=== PATIENT | male | born 1960 | race African-American/Black ===

== ENCOUNTER 2017-12-08 11:27 | Inpatient (IN) | payer OTHER ==
[2017-12-08] MEDS ORDERED: PNEUMOC 13-VAL CONJ-DIP CRM/PF 0.5 ML DISP.SYRIN IM ONE (11:47)
[2017-12-08] MEDS ORDERED: guaiFENesin/D-METHORPHAN HB 10 ML UNIT-DOSE CUPS PO PRN (12:59)
[2017-12-08] MEDS ORDERED: MAGNESIUM HYDROX 2400MG/30ML ORAL SUSPENSION 30 ML CUP PO PRN (12:59)
[2017-12-08] MEDS ORDERED: LOPERAMIDE HCL 2 MG CAPSULE PO PRN (12:59)
[2017-12-08] MEDS ORDERED: MENTHOL/PHENOL 1 EACH UD MM PRN (12:59)
[2017-12-08] MEDS ORDERED: MAGNESIUM CITRATE 300 ML BOTTLE PO PRN (12:59)
[2017-12-08] MEDS ORDERED: MAG HYDROX/AL HYDROX/SIMETH 30 ML UNIT-DOSE CUP PO PRN (12:59)
[2017-12-08] MEDS ORDERED: P-EPHED 60MG/TRIPROLIDI 2.5MG TABLET PO PRN (12:59)
[2017-12-08] MEDS ORDERED: NICOTINE POLACRILEX 2 MG GUM BUC PRN (12:59)
[2017-12-08] MEDS ORDERED: hydrOXYzine PAMOATE 50 MG CAPSULE (FP) PO PRN (12:59)
--- NOTE | 2017-12-08 14:04 | HP ---
[facility] Rehab Assess/Revision - Admission History Ad[facility] Rehab [facility]: [facility] Date of Admission to Rehab: 12/08/17 - Findings Detox History & Physical reviewed: Yes Concur with findings: Yes Comments/Additional Findings: ADMITTED TO REHAB TODAY FOR AFTERCARE IN STABLE CONDITION. Inpatient Rehab Admission - Initial Determination Are CD services needed?: Yes Free of communicable disease: Yes Not in need of hospitalization: Yes - Rehab Admission Criteria Patient is meeting Inpatient Rehab admission criteria:: Yes
[2017-12-08] MEDS: NICOTINE 14 MG/24 HOURS TOPICAL PATCH TD SCH (14:49)
[2017-12-08] MEDS: ACETAMINOPHEN 325 MG TABLET (FP) PO PRN (21:18)
[2017-12-08] MEDS: THIAMINE HCL 100 MG TABLET (FP) PO SCH (21:18)
[2017-12-08] MEDS: MELATONIN 5 MG TABLETS PO PRN (21:18)
--- NOTE | 2017-12-09 06:22 | HP ---
Psychiatrist Admission - Data Date of interview: 12/09/17 Admission source: [address] [place] [address] Identifying data: This is the first [facility] admission for this 57 years old single Black male, father of 2 children, unemployed on SSI,domiciled Medical History: Significant for hypertension, lower back pain/herniated disc(L5 -L6), sleep apnea, glaucoma and a history of orthosurgery of both knees in 2007 and nasal surgery. Smokes 5 cigarettes daily Psychiatric History: Reports being diagnosed with Bipolar Disorder at age 16 and started on psychotropic medications. Claims that he has been seeing psychiatrist since. His last psychiatric outpatient treatment was during his 2 years of incarceration prior to his released in September 2017. While there, he was prescribed Depakote 500 mg po BID and another medication. He attended [facility] before his incarceration. Claims he was not given scripts for his medications upon his release and was off them till 2 weeks ago when he was kept and observed at [facility] ED for anxiety. He was discharged on Depakote. He saw Dr Figueroa on 12/05/17 while in detox and was prescribed Seroquel 50 mg po HS( on his request) and Depakote 500 mg po BID(Valproic Acid level on 02/04/18: 5,601 ). Reports one previous psychiatric hospitalization (2014) at [facility]. Denies history of suicidal attempt.Mr Benton states that he is scheduled to see a new psychiatrist, Dr Singh, at a clinic on [facility] in the [place] in December 2017. At present, reports doing well but sleeping poorly Physical/Sexual Abuse/Trauma History: Denies history of emotional, physical or sexual abuse as well as DV relationship. No service Additional Comment: Reports history of multiple previous arrests including 5-7 felony convictions. Reports being on parole till September 2019 Vital Signs: Vital Signs - 24 hr 12/09/17 12/09/17 00:30 03:30 Respiratory 20 20 Rate Allergies/Adverse Reactions: Allergies Allergy/AdvReac Type Severity Reaction Status Date / Time Fish Containing Products Allergy Intermediate Itching Verified 12/08/17 11:33 Date of last physical exam: 12/04/17 Concur with the findings of this exam: Yes - Substance Abuse/Tx History Hx Alcohol Use: Yes Hx Substance Use: Yes Substance Use Type: Alcohol (Started drinking alcohol at age 18, consumes a 6pk of beer 3-6 times weekly. Last drank on 12/04/17), Cocaine (Started using cocaine at age 13, consumes $200 worth daily. Last used on 12/03/17) Mental Status Exam - Mental Status Exam Alert and Oriented to: Time, Place, Person Cognitive Function: Fair Patient Appearance: Well Groomed Mood: Hopeful, Euthymic Affect: Appropriate Patient Behavior: Cooperative Speech Pattern: Clear Voice Loudness: Normal Thought Process: Intact Thought Disorder: Not Present Hallucinations: Denies Suicidal Ideation: Denies Homicidal Ideation: Denies Insight/Judgement: Fair Sleep: Poorly Appetite: Good Muscle strength/Tone: Normal Gait/Station: Normal Psychiatric Findings - Problem List ([place] 1, 2,3) (1) Alcohol dependence Current Visit: Yes Status: Acute (2) Cocaine dependence Current Visit: Yes Status: Acute (3) Nicotine dependence Current Visit: Yes Status: Acute Qualifiers: Nicotine product type: cigarettes Substance use status: in withdrawal Qualified Code(s): F17.213 - Nicotine dependence, cigarettes, with withdrawal (4) Bipolar disorder Current Visit: No Status: Chronic Qualifiers: Active/Remission status: remission status unspecified Qualified Code(s): F31.9 - Bipolar disorder, unspecified Comment: As per self-report.On medications. (5) Substance-induced sleep disorder Current Visit: Yes Status: Acute (6) Glaucoma Current Visit: Yes Status: Chronic Qualifiers: Glaucoma type: unspecified (7) Hemorrhoid Current Visit: Yes Status: Chronic Qualifiers: Hemorrhoid type: unspecified Qualified Code(s): K64.9 - Unspecified hemorrhoids (8) Hypertension Current Visit: Yes Status: Chronic Qualifiers: (9) Sleep apnea Current Visit: Yes Status: Chronic - Initial Treatment Plan Initial Treatment Plan: 1) Continue Seroquel 50 mg po HS and Depakote 500 mg po BID. 2) Valproic Acid serum level. 3) Monitor progress
[2017-12-09] MEDS: PRENATAL VITAMINS W/ FOLIC ACID TABLET (FP) PO SCH (10:22)
[2017-12-09] MEDS: HYDROCHLOROTHIAZIDE 25 MG TABLET (FP) PO SCH (10:22)
[2017-12-09] MEDS: NICOTINE 14 MG/24 HOURS TOPICAL PATCH TD SCH (10:23)
[2017-12-09] MEDS ORDERED: PNEUMOCOCCAL 23 VACCINE 0.5 ML VIAL IM ONE (12:00)
[2017-12-09] MEDS: THIAMINE HCL 100 MG TABLET (FP) PO SCH (21:07)
[2017-12-09] MEDS: MELATONIN 5 MG TABLETS PO PRN (21:07)
[2017-12-10] MEDS: NICOTINE 14 MG/24 HOURS TOPICAL PATCH TD SCH (09:48)
[2017-12-10] MEDS: HYDROCHLOROTHIAZIDE 25 MG TABLET (FP) PO SCH (09:48)
[2017-12-10] MEDS: PRENATAL VITAMINS W/ FOLIC ACID TABLET (FP) PO SCH (09:48)
[2017-12-10] MEDS: IBUPROFEN 400 MG TABLET (FP) PO PRN (09:49)
--- NOTE | 2017-12-10 15:20 | PN ---
Psychiatric Progress Note Vital Signs: Vital Signs Period Temp Pulse Resp BP Sys/Mao Pulse Ox Last 24 Hr 97.7 F 90 18-18 133/83 Date of Session: 12/10/17 Chief Complaint:: Insomnia HPI: Patient addressing Alcohol and cocaine Dependence comorbid with Nicotine Dependence, Bipolar Disorder and Substance-Induced Sleep disorder ROS: Glaucoma, Hemorrhoids, HTN, Sleep apnea Current Medications: Active Medications Generic Name Dose Route Start Last Admin Trade Name Freq PRN Reason Stop Dose Admin Acetaminophen 650 mg 12/08/17 12:59 12/08/17 21:18 Tylenol - PO 650 mg Q4H PRN Administration FEVER Al Hydroxide/Mg Hydroxide 30 ml 12/08/17 12:59 Mylanta Oral Suspension - PO Q6H PRN DYSPEPSIA Eucalyptus/Menthol/Phenol/Sorbitol 1 each 12/08/17 12:59 Cepastat Lozenge - MM Q4H PRN SORE THROAT Guaifenesin 10 ml 12/08/17 12:59 Robitussin Dm - PO Q6H PRN COUGH Hydrochlorothiazide 25 mg 12/09/17 10:00 12/10/17 09:48 Hctz - PO 25 mg DAILY DICK Administration Hydroxyzine Pamoate 50 mg 12/08/17 12:59 Vistaril - PO Q4H PRN AGITATION Ibuprofen 400 mg 12/08/17 12:59 12/10/17 09:49 Motrin - PO 400 mg Q6H PRN Administration Pain Level 4-6 Loperamide HCl 4 mg 12/08/17 12:59 Imodium - PO Q6H PRN DIARRHEA Magnesium Citrate 300 ml 12/08/17 12:59 Citroma - PO Q48H PRN CONSTIPATION Magnesium Hydroxide 30 ml 12/08/17 12:59 Milk Of Magnesia - PO DAILY PRN CONSTIPATION Melatonin 5 mg 12/08/17 22:00 12/09/17 21:07 Melatonin PO 5 mg HS PRN Administration INSOMNIA Nicotine 14 mg 12/08/17 14:00 12/10/17 09:48 Nicoderm Patch - TD Not Given DAILY DICK Nicotine Polacrilex 2 mg 12/08/17 12:59 Nicorette Gum - BUC Q2H PRN NICOTINE REPLACEMENT RX Multivit/Folic Acid/Iron 1 tab 12/09/17 10:00 12/10/17 09:48 Vitamins (Sjr) - PO 1 tab DAILY DICK Administration Pseudoephedrine/Triprolidine 1 combo 12/08/17 12:59 Actifed - PO TID PRN NASAL CONGESTION Suvorexant 10 mg 12/10/17 22:00 Belsomra PO 12/13/17 21:59 HS PRN INSOMNIA Thiamine HCl 100 mg 12/08/17 22:00 12/09/17 21:07 Vitamin B1 - PO 100 mg HS DICK Administration Medication(s) Change(s): Start Belsomra 10 mg po HS prn for insomnia Current Side Effect: No Lab tests ordered: Yes Lab tests reviewed: Yes Provider note:: Patient reports experiencing difficulty to sleep. Told news writer that he has been sleeping poorly drespite taking Seroquel 50 mg & Depakote 500 mg at bedtime. Requests to be ordered a sleeping pill. Discussed with patient the hypnotic effects of Belsomra and other alternatives and he agreed to start Belsomra Total face to face time:: 15 Mental Status Exam - Mental Status Exam Alert and Oriented to: Time, Place, Person Cognitive Function: Fair Patient Appearance: Well Groomed Mood: Hopeful, Euthymic Affect: Appropriate Patient Behavior: Cooperative Speech Pattern: Clear, Artificially Ventilated Thought Process: Intact, Goal Oriented Hallucinations: Denies Suicidal Ideation: Denies Homicidal Ideation: Denies Insight/Judgement: Fair Sleep: Poorly Appetite: Good Muscle strength/Tone: Normal Gait/Station: Normal Psychiatric Treatment Plan - Problem List (1) Alcohol dependence Current Visit: Yes (2) Cocaine dependence Current Visit: Yes (3) Nicotine dependence Current Visit: Yes Qualifiers: Nicotine product type: cigarettes Substance use status: in withdrawal Qualified Code(s): F17.213 - Nicotine dependence, cigarettes, with withdrawal (4) Bipolar disorder Current Visit: No Qualifiers: Active/Remission status: remission status unspecified Qualified Code(s): F31.9 - Bipolar disorder, unspecified Comment: As per self-report.On medications. (5) Substance-induced sleep disorder Current Visit: Yes (6) Glaucoma Current Visit: Yes Qualifiers: Glaucoma type: unspecified (7) Hemorrhoid Current Visit: Yes Qualifiers: Hemorrhoid type: unspecified Qualified Code(s): K64.9 - Unspecified hemorrhoids (8) Hypertension Current Visit: Yes Qualifiers: (9) Sleep apnea Current Visit: Yes Initial treatment plan: 1) Start Belsomra 10 mg po HS prn for insomnia. 2) Monitor progress
[2017-12-10] MEDS: THIAMINE HCL 100 MG TABLET (FP) PO SCH (21:49)
[2017-12-10] MEDS: ACETAMINOPHEN 325 MG TABLET (FP) PO PRN (21:51)
[2017-12-10] MEDS ORDERED: SUVOREXANT 10 MG TABLET PO PRN (22:00)
--- NOTE | 2017-12-11 08:22 | PN ---
Psychiatric Progress Note Vital Signs: Vital Signs Period Temp Pulse Resp BP Sys/Mao Pulse Ox Last 24 Hr 97.6 F 87 18-20 123/84 Date of Session: 12/11/17 Chief Complaint:: Insomnia HPI: Patient addressing Alcohol and cocaine Dependence comorbid with Nicotine Dependence, Bipolar Disorder and Substance-Induced Sleep disorder ROS: Glaucoma, Hemorrhoids, HTN, Sleep apnea Current Medications: Active Medications Generic Name Dose Route Start Last Admin Trade Name Freq PRN Reason Stop Dose Admin Acetaminophen 650 mg 12/08/17 12:59 12/10/17 21:51 Tylenol - PO 650 mg Q4H PRN Administration FEVER Al Hydroxide/Mg Hydroxide 30 ml 12/08/17 12:59 Mylanta Oral Suspension - PO Q6H PRN DYSPEPSIA Eucalyptus/Menthol/Phenol/Sorbitol 1 each 12/08/17 12:59 Cepastat Lozenge - MM Q4H PRN SORE THROAT Guaifenesin 10 ml 12/08/17 12:59 Robitussin Dm - PO Q6H PRN COUGH Hydrochlorothiazide 25 mg 12/09/17 10:00 12/10/17 09:48 Hctz - PO 25 mg DAILY DICK Administration Hydroxyzine Pamoate 50 mg 12/08/17 12:59 Vistaril - PO Q4H PRN AGITATION Ibuprofen 400 mg 12/08/17 12:59 12/10/17 09:49 Motrin - PO 400 mg Q6H PRN Administration Pain Level 4-6 Loperamide HCl 4 mg 12/08/17 12:59 Imodium - PO Q6H PRN DIARRHEA Magnesium Citrate 300 ml 12/08/17 12:59 Citroma - PO Q48H PRN CONSTIPATION Magnesium Hydroxide 30 ml 12/08/17 12:59 Milk Of Magnesia - PO DAILY PRN CONSTIPATION Melatonin 5 mg 12/08/17 22:00 12/09/17 21:07 Melatonin PO 5 mg HS PRN Administration INSOMNIA Nicotine 14 mg 12/08/17 14:00 12/10/17 09:48 Nicoderm Patch - TD Not Given DAILY DICK Nicotine Polacrilex 2 mg 12/08/17 12:59 Nicorette Gum - BUC Q2H PRN NICOTINE REPLACEMENT RX Multivit/Folic Acid/Iron 1 tab 12/09/17 10:00 12/10/17 09:48 Vitamins (Sjr) - PO 1 tab DAILY DICK Administration Pseudoephedrine/Triprolidine 1 combo 12/08/17 12:59 Actifed - PO TID PRN NASAL CONGESTION Suvorexant 15 mg 12/11/17 08:11 Belsomra PO HS PRN INSOMNIA Thiamine HCl 100 mg 12/08/17 22:00 12/10/17 21:49 Vitamin B1 - PO 100 mg HS DICK Administration Medication(s) Change(s): Increase Belsomra dosage to 15 mg po HS prn for insomnia Current Side Effect: No Lab tests ordered: Yes Lab tests reviewed: Yes Provider note:: Patient continue to report experiencin difficulty to sleep. Told sba underwriter that he has been sleeping poorly despite taking Belsomra 10 mg po at bedtime lst night. Discussed increasing Belsomra to 15 mg po HS prn for insomnia and he agreed with that plan Total face to face time:: 15 Mental Status Exam - Mental Status Exam Alert and Oriented to: Time, Place, Person Cognitive Function: Fair Patient Appearance: Well Groomed Mood: Hopeful, Euthymic Affect: Appropriate Patient Behavior: Cooperative Speech Pattern: Clear Voice Loudness: Normal Thought Process: Intact, Goal Oriented Thought Disorder: Not Present Hallucinations: Denies Suicidal Ideation: Denies Homicidal Ideation: Denies Insight/Judgement: Fair Sleep: Poorly Appetite: Good Muscle strength/Tone: Normal Gait/Station: Normal Psychiatric Treatment Plan - Problem List (1) Alcohol dependence Current Visit: Yes (2) Cocaine dependence Current Visit: Yes (3) Nicotine dependence Current Visit: Yes Qualifiers: Nicotine product type: cigarettes Substance use status: in withdrawal Qualified Code(s): F17.213 - Nicotine dependence, cigarettes, with withdrawal (4) Bipolar disorder Current Visit: No Qualifiers: Active/Remission status: remission status unspecified Qualified Code(s): F31.9 - Bipolar disorder, unspecified Comment: As per self-report.On medications. (5) Substance-induced sleep disorder Current Visit: Yes (6) Glaucoma Current Visit: Yes Qualifiers: Glaucoma type: unspecified (7) Hemorrhoid Current Visit: Yes Qualifiers: Hemorrhoid type: unspecified Qualified Code(s): K64.9 - Unspecified hemorrhoids (8) Hypertension Current Visit: Yes Qualifiers: (9) Sleep apnea Current Visit: Yes Initial treatment plan: 1) Discontinue Belsomra as currently ordered. 2) Start Belsomra 10 mg po HS prn for insomnia. 3) Monitor progress
[2017-12-11] MEDS: HYDROCHLOROTHIAZIDE 25 MG TABLET (FP) PO SCH (09:55)
[2017-12-11] MEDS: PRENATAL VITAMINS W/ FOLIC ACID TABLET (FP) PO SCH (09:55)
[2017-12-11] MEDS: ACETAMINOPHEN 325 MG TABLET (FP) PO PRN (09:55)
[2017-12-11] MEDS: NICOTINE 14 MG/24 HOURS TOPICAL PATCH TD SCH (09:56)
[2017-12-11] MEDS: SUVOREXANT 15 MG TABLET PO PRN (21:34)
[2017-12-11] MEDS: IBUPROFEN 400 MG TABLET (FP) PO PRN (21:35)
[2017-12-11] MEDS: MELATONIN 5 MG TABLETS PO PRN (21:35)
[2017-12-11] MEDS: THIAMINE HCL 100 MG TABLET (FP) PO SCH (21:35)
[2017-12-12] MEDS: HYDROCHLOROTHIAZIDE 25 MG TABLET (FP) PO SCH (09:37)
[2017-12-12] MEDS: PRENATAL VITAMINS W/ FOLIC ACID TABLET (FP) PO SCH (09:37)
[2017-12-12] MEDS: IBUPROFEN 400 MG TABLET (FP) PO PRN ×2 (09:37→21:21)
[2017-12-12] MEDS: NICOTINE 14 MG/24 HOURS TOPICAL PATCH TD SCH (10:04)
[2017-12-12] MEDS: SUVOREXANT 15 MG TABLET PO PRN (21:22)
[2017-12-12] MEDS: MELATONIN 5 MG TABLETS PO PRN (21:23)
[2017-12-12] MEDS: THIAMINE HCL 100 MG TABLET (FP) PO SCH (21:24)
[2017-12-13] MEDS: HYDROCHLOROTHIAZIDE 25 MG TABLET (FP) PO SCH (09:45)
[2017-12-13] MEDS: IBUPROFEN 400 MG TABLET (FP) PO PRN ×2 (09:45→21:21)
[2017-12-13] MEDS: PRENATAL VITAMINS W/ FOLIC ACID TABLET (FP) PO SCH (09:45)
[2017-12-13] MEDS: NICOTINE 14 MG/24 HOURS TOPICAL PATCH TD SCH (09:46)
[2017-12-13] MEDS: THIAMINE HCL 100 MG TABLET (FP) PO SCH (21:21)
[2017-12-13] MEDS: MELATONIN 5 MG TABLETS PO PRN (21:22)
[2017-12-13] MEDS: SUVOREXANT 15 MG TABLET PO PRN (21:23)
[2017-12-14] MEDS: PRENATAL VITAMINS W/ FOLIC ACID TABLET (FP) PO SCH (09:47)
[2017-12-14] MEDS: HYDROCHLOROTHIAZIDE 25 MG TABLET (FP) PO SCH (09:47)
[2017-12-14] MEDS: NICOTINE 14 MG/24 HOURS TOPICAL PATCH TD SCH (09:48)
[2017-12-14] MEDS: IBUPROFEN 400 MG TABLET (FP) PO PRN ×2 (09:49→21:17)
[2017-12-14] MEDS: THIAMINE HCL 100 MG TABLET (FP) PO SCH (21:17)
[2017-12-14] MEDS: MELATONIN 5 MG TABLETS PO PRN (21:17)
[2017-12-14] MEDS: SUVOREXANT 15 MG TABLET PO PRN (21:17)
[2017-12-15] MEDS: NICOTINE 14 MG/24 HOURS TOPICAL PATCH TD SCH (09:40)
[2017-12-15] MEDS: PRENATAL VITAMINS W/ FOLIC ACID TABLET (FP) PO SCH (09:40)
[2017-12-15] MEDS: HYDROCHLOROTHIAZIDE 25 MG TABLET (FP) PO SCH (09:40)
[2017-12-15] MEDS: IBUPROFEN 400 MG TABLET (FP) PO PRN ×2 (09:41→21:32)
[2017-12-15] MEDS: THIAMINE HCL 100 MG TABLET (FP) PO SCH (21:30)
[2017-12-15] MEDS: SUVOREXANT 15 MG TABLET PO PRN (21:32)
[2017-12-15] MEDS: MELATONIN 5 MG TABLETS PO PRN (21:32)
[2017-12-16] MEDS: HYDROCHLOROTHIAZIDE 25 MG TABLET (FP) PO SCH (09:55)
[2017-12-16] MEDS: IBUPROFEN 400 MG TABLET (FP) PO PRN ×2 (09:55→21:32)
[2017-12-16] MEDS: PRENATAL VITAMINS W/ FOLIC ACID TABLET (FP) PO SCH (09:55)
[2017-12-16] MEDS: NICOTINE 14 MG/24 HOURS TOPICAL PATCH TD SCH (09:56)
--- NOTE | 2017-12-16 15:08 | PN ---
[facility] Progress Note Note: Pt has sore inside bottom lip and reports difficulty walking due to chronic back pain Vital Signs Temperature 97.6 F 12/16/17 07:05 Pulse Rate 95 H 12/16/17 09:00 Respiratory Rate 18 12/16/17 07:05 Blood Pressure 140/72 12/16/17 09:00 O2 Sat by Pulse Oximetry (%) OBJ: Alert and oriented x 3. In NAD. Oral cavity with chancre sore inside bottom lip. Ambulates with limp, no deformities noted. A/P chancre sore Unsteady gait Will order oragel for sore cane during ambulation monitor clinically
--- NOTE | 2017-12-16 15:16 | PN ---
S Progress Note Note: Notified by staff that patient complains of headache and dizziness. Denies chest pain and SOB. Has history of HTN and noncomplaint with amlodipine. Vital Signs Temperature 97.6 F 12/16/17 07:05 Pulse Rate 95 H 12/16/17 09:00 Respiratory Rate 18 12/16/17 07:05 Blood Pressure 140/72 12/16/17 09:00 O2 Sat by Pulse Oximetry (%) Laboratory Tests 12/09/17 12/10/17 08:25 07:30 Valproic Acid 19.2 L Hep C Ab Diagnostic <0.1 Liver Fibrosis Interp Car: S1S2. RRR. BP 152/101, HR 68 Resp: CTA BL Ext: no edema A/P: Elevated BP Hx of HTN Will order clonidine 0.1 mg po stat resume amlodipine 10mg daily in am continue to monitor clinically To ER if CP and SOB develops
[2017-12-16] MEDS ORDERED: cloNIDine HCL 0.1 MG TABLET PO ONE (15:30)
[2017-12-16] MEDS: BENZOCAINE 20 % GEL 9 GM TUBE MM PRN (21:31)
[2017-12-16] MEDS: MELATONIN 5 MG TABLETS PO PRN (21:32)
[2017-12-16] MEDS: SUVOREXANT 15 MG TABLET PO PRN (21:33)
[2017-12-16] MEDS: THIAMINE HCL 100 MG TABLET (FP) PO SCH (21:33)
[2017-12-17] MEDS: PRENATAL VITAMINS W/ FOLIC ACID TABLET (FP) PO SCH (09:43)
[2017-12-17] MEDS: HYDROCHLOROTHIAZIDE 25 MG TABLET (FP) PO SCH (09:43)
[2017-12-17] MEDS: IBUPROFEN 400 MG TABLET (FP) PO PRN ×2 (09:43→21:40)
[2017-12-17] MEDS: BENZOCAINE 20 % GEL 9 GM TUBE MM PRN (09:43)
[2017-12-17] MEDS: NICOTINE 14 MG/24 HOURS TOPICAL PATCH TD SCH (09:44)
[2017-12-17] MEDS ORDERED: amLODIPine BESYLATE 10 MG TABLET (FP) PO SCH (10:00)
[2017-12-17] MEDS: MELATONIN 5 MG TABLETS PO PRN (21:38)
[2017-12-17] MEDS: THIAMINE HCL 100 MG TABLET (FP) PO SCH (21:38)
[2017-12-17] MEDS: SUVOREXANT 15 MG TABLET PO PRN (21:39)
[2017-12-18] MEDS: BENZOCAINE 20 % GEL 9 GM TUBE MM PRN ×3 (06:02→22:13)
[2017-12-18] MEDS: IBUPROFEN 400 MG TABLET (FP) PO PRN ×2 (10:08→21:35)
[2017-12-18] MEDS: NICOTINE 14 MG/24 HOURS TOPICAL PATCH TD SCH (10:09)
[2017-12-18] MEDS: PRENATAL VITAMINS W/ FOLIC ACID TABLET (FP) PO SCH (10:09)
[2017-12-18] MEDS: HYDROCHLOROTHIAZIDE 25 MG TABLET (FP) PO SCH (10:09)
--- NOTE | 2017-12-18 16:59 | PN ---
[facility] Progress Note Note: Pt presents with fungal rash in between toes, persistent mouth sore and request for gingerale. Vital Signs Temperature 97.4 F L 12/18/17 06:54 Pulse Rate 93 H 12/18/17 06:54 Respiratory Rate 20 12/18/17 06:54 Blood Pressure 128/85 12/18/17 06:54 O2 Sat by Pulse Oximetry (%) Obj: mouth: oral chancre sore inside bottom lip ext: no edema, +erythmatous rash in between toes. A.P: Will add Vatrex 500mg BID x 2 days Nystatin powder top for rash add diet gingerale BID and BGM BID AC continue to monitor
[2017-12-18] MEDS: THIAMINE HCL 100 MG TABLET (FP) PO SCH (21:34)
[2017-12-18] MEDS: valACYclovir HCL 500 MG TABLET (FP) PO SCH (21:35)
[2017-12-19] MEDS: IBUPROFEN 400 MG TABLET (FP) PO PRN (09:46)
[2017-12-19] MEDS: HYDROCHLOROTHIAZIDE 25 MG TABLET (FP) PO SCH (09:46)
[2017-12-19] MEDS: NYSTATIN POWDER 100,000 UNITS/GM - 15 GM TOPICAL POWDER TP SCH (09:46)
[2017-12-19] MEDS: PRENATAL VITAMINS W/ FOLIC ACID TABLET (FP) PO SCH (09:46)
[2017-12-19] MEDS: valACYclovir HCL 500 MG TABLET (FP) PO SCH ×2 (09:46→21:37)
[2017-12-19] MEDS: BENZOCAINE 20 % GEL 9 GM TUBE MM PRN (09:47)
[2017-12-19] MEDS: NICOTINE 14 MG/24 HOURS TOPICAL PATCH TD SCH (10:55)
--- NOTE | 2017-12-19 17:48 | PN ---
[facility] Progress Note Note: Psychiatry Attending's note : Called earlier by SCOUT Moe. Issue : broken . Mr Odonnell witnessed the incident. Has observed the individual responsible. Identified on the unit as patient # [id number]. Mr Odonnell is concerned about being labeled " a snitch." He wants to complete his program without any problem with others. NO question of impulsive behavior or suicide attempt. Patient reports his suspicion of a maneuver to smuggle contraband. Case discussed with staff.Vigilance recommended. [id number] was informed by nursing staff.
[2017-12-19] MEDS: THIAMINE HCL 100 MG TABLET (FP) PO SCH (21:38)
[2017-12-19] MEDS: MELATONIN 5 MG TABLETS PO PRN (21:38)
[2017-12-19] MEDS: SUVOREXANT 15 MG TABLET PO PRN (21:39)
[2017-12-19] MEDS ORDERED: PT OWN MED DRAWER 7, Y5N ONE (21:42)
[2017-12-20] MEDS ORDERED: PT OWN MED DRAWER 7, Y5N ONE ×2 (08:54→22:06)
[2017-12-20] MEDS: HYDROCHLOROTHIAZIDE 25 MG TABLET (FP) PO SCH (10:03)
[2017-12-20] MEDS: NYSTATIN POWDER 100,000 UNITS/GM - 15 GM TOPICAL POWDER TP SCH (10:03)
[2017-12-20] MEDS: valACYclovir HCL 500 MG TABLET (FP) PO SCH (10:03)
[2017-12-20] MEDS: NICOTINE 14 MG/24 HOURS TOPICAL PATCH TD SCH (10:03)
[2017-12-20] MEDS: PRENATAL VITAMINS W/ FOLIC ACID TABLET (FP) PO SCH (10:03)
[2017-12-20] MEDS: IBUPROFEN 400 MG TABLET (FP) PO PRN ×2 (10:04→22:04)
--- NOTE | 2017-12-20 14:27 | PN ---
Psychiatric Progress Note Vital Signs: Vital Signs Period Temp Pulse Resp BP Sys/Mao Pulse Ox Last 24 Hr 97.3 F 79-93 -18 122-129/78-82 Date of Session: 12/20/17 Chief Complaint:: Discharge Note HPI: Patient addressing Alcohol and Cocaine Dependence Comorbid with Nicotine Dependence, Bipolar Disorder and Substance-induced Sleep Disorder ROS: HTN, Glaucoma, Sleep apnea and Hemorrhoid Current Medications: Active Medications Generic Name Dose Route Start Last Admin Trade Name Freq PRN Reason Stop Dose Admin Acetaminophen 650 mg 12/08/17 12:59 12/11/17 09:55 Tylenol - PO 650 mg Q4H PRN Administration FEVER Al Hydroxide/Mg Hydroxide 30 ml 12/08/17 12:59 Mylanta Oral Suspension - PO Q6H PRN DYSPEPSIA Benzocaine 1 applic 12/16/17 15:05 12/19/17 09:47 Anbesol - MM 1 applic Q2H PRN Administration chancre sore Eucalyptus/Menthol/Phenol/Sorbitol 1 each 12/08/17 12:59 Cepastat Lozenge - MM Q4H PRN SORE THROAT Guaifenesin 10 ml 12/08/17 12:59 Robitussin Dm - PO Q6H PRN COUGH Hydrochlorothiazide 25 mg 12/09/17 10:00 12/20/17 10:03 Hctz - PO 25 mg DAILY DICK Administration Hydroxyzine Pamoate 50 mg 12/08/17 12:59 Vistaril - PO Q4H PRN AGITATION Ibuprofen 400 mg 12/08/17 12:59 12/20/17 10:04 Motrin - PO 400 mg Q6H PRN Administration Pain Level 4-6 Loperamide HCl 4 mg 12/08/17 12:59 Imodium - PO Q6H PRN DIARRHEA Magnesium Citrate 300 ml 12/08/17 12:59 Citroma - PO Q48H PRN CONSTIPATION Magnesium Hydroxide 30 ml 12/08/17 12:59 Milk Of Magnesia - PO DAILY PRN CONSTIPATION Melatonin 5 mg 12/08/17 22:00 12/19/17 21:38 Melatonin PO 5 mg HS PRN Administration INSOMNIA Nicotine 14 mg 12/08/17 14:00 12/20/17 10:03 Nicoderm Patch - TD Not Given DAILY DICK Nicotine Polacrilex 2 mg 12/08/17 12:59 Nicorette Gum - BUC Q2H PRN NICOTINE REPLACEMENT RX Nystatin 1 applic 12/19/17 10:00 12/20/17 10:03 Nystop Powder - TP Not Given DAILY DICK Multivit/Folic Acid/Iron 1 tab 12/09/17 10:00 12/20/17 10:03 Vitamins (Sjr) - PO 1 tab DAILY DICK Administration Pseudoephedrine/Triprolidine 1 combo 12/08/17 12:59 Actifed - PO TID PRN NASAL CONGESTION Suvorexant 15 mg 12/19/17 12:41 12/19/17 21:39 Belsomra PO 15 mg HS PRN Administration INSOMNIA Thiamine HCl 100 mg 12/08/17 22:00 12/19/17 21:38 Vitamin B1 - PO 100 mg HS DICK Administration Valacyclovir HCl 500 mg 12/18/17 22:00 12/20/17 10:03 Valtrex - PO 12/20/17 21:59 500 mg BID DICK Administration Current Side Effect: No Lab tests ordered: Yes Lab tests reviewed: Yes Provider note:: Patient will complete this program on 12/21/17.He has met his treatment goals and will continue to address his issues in outpatient treatment at [facility]. Told ghost writer that from his participation in this program, he has learned the importance of managing his anger, complying with his medications and have patience. Scripts for Depakote 500 mg po BID electronically transferred to his pharmacy. He is stable for discharge on 12/21/17 Total face to face time:: 35 Mental Status Exam - Mental Status Exam Alert and Oriented to: Time, Place, Person Cognitive Function: Fair Patient Appearance: Well Groomed Mood: Hopeful, Euthymic Affect: Appropriate Patient Behavior: Cooperative Speech Pattern: Clear Voice Loudness: Normal Thought Process: Intact, Goal Oriented Thought Disorder: Not Present Hallucinations: Denies Suicidal Ideation: Denies Homicidal Ideation: Denies Insight/Judgement: Fair Sleep: Fair Appetite: Good Muscle strength/Tone: Normal Gait/Station: Normal Psychiatric Treatment Plan - Problem List (1) Alcohol dependence Current Visit: Yes (2) Cocaine dependence Current Visit: Yes (3) Nicotine dependence Current Visit: Yes Qualifiers: Nicotine product type: cigarettes Substance use status: in withdrawal Qualified Code(s): F17.213 - Nicotine dependence, cigarettes, with withdrawal (4) Bipolar disorder Current Visit: No Qualifiers: Active/Remission status: remission status unspecified Qualified Code(s): F31.9 - Bipolar disorder, unspecified Comment: As per self-report.On medications. (5) Substance-induced sleep disorder Current Visit: Yes (6) Glaucoma Current Visit: Yes Qualifiers: Glaucoma type: unspecified (7) Hemorrhoid Current Visit: Yes Qualifiers: Hemorrhoid type: unspecified Qualified Code(s): K64.9 - Unspecified hemorrhoids (8) Hypertension Current Visit: Yes Qualifiers: (9) Sleep apnea Current Visit: Yes Initial treatment plan: Patient is discharged tomorrow and referred to [facility] for outpatient treatment
[2017-12-20] MEDS: MELATONIN 5 MG TABLETS PO PRN (22:03)
[2017-12-20] MEDS: THIAMINE HCL 100 MG TABLET (FP) PO SCH (22:03)
[2017-12-20] MEDS: SUVOREXANT 15 MG TABLET PO PRN (22:03)
[2017-12-20] MEDS: BENZOCAINE 20 % GEL 9 GM TUBE MM PRN (22:05)
[2017-12-21 06:49] VITALS: BP 135/69; PULSE 92; TEMP 97.8
[2017-12-21] MEDS: IBUPROFEN 400 MG TABLET (FP) PO PRN (09:09)
[2017-12-21] MEDS: PRENATAL VITAMINS W/ FOLIC ACID TABLET (FP) PO SCH (09:09)
[2017-12-21] MEDS: NICOTINE 14 MG/24 HOURS TOPICAL PATCH TD SCH (09:10)
[2017-12-21] MEDS: NYSTATIN POWDER 100,000 UNITS/GM - 15 GM TOPICAL POWDER TP SCH (09:10)
[2017-12-21] MEDS: HYDROCHLOROTHIAZIDE 25 MG TABLET (FP) PO SCH (09:10)
== END 2017-12-21 09:45 | disposition home or self-care (01) | DRG 772 ==
LOC: YASAS 11:27 → Y3W 11:29
PROVIDERS: ADMIT Psychiatry & Neurology Psychiatry; ATTEND Psychiatry & Neurology Psychiatry
PROC: HZ42ZZZ Group Counseling for Substance Abuse Treatment, Cognitive-Behavioral (ICD-10-PCS; principal; 2017-12-08)
DX: F10.220 Alcohol dependence with intoxication, uncomplicated (principal); F14.20 Cocaine dependence, uncomplicated; F17.213 Nicotine dependence, cigarettes, with withdrawal; F31.9 Bipolar disorder, unspecified; F19.282 Other psychoactive substance dependence with psychoactive substance-induced sleep disorder; I10 Essential (primary) hypertension; K64.9 Unspecified hemorrhoids; H40.9 Unspecified glaucoma; G47.30 Sleep apnea, unspecified; A51.0 Primary genital syphilis
CPT/HCPCS: 36415; 80164; 82962; 90732; G0009